=== PATIENT | female | born 1980 | race Caucasian/White ===

== ENCOUNTER 2017-12-14 12:16 | Inpatient (IN) ==
[2017-12-14 13:38] LABS: Basophils % 0.1 % (0.1-2.0); Eosinophils % 0.7 % (0.1-12.0); Hematocrit 39.7 % (37.0-47.0); Hemoglobin 12.4 g/dL (12.2-16.2); Lymphocytes # 1.4 K/mm3 (0.7-4.5); Lymphocytes % 22.4 K/mm3 (10-50); Mean Corpuscular HGB Conc 31.1 g/dL (31.8-35.4); Mean Corpuscular Hemoglobin 24.8 pg (27.0-31.2); Mean Corpuscular Volume 79.5 fl (81-99); Mean Platelet Volume 8.7 fl (7.4-10.4); Monocytes # 0.3 K/mm3 (0.1-1.0); Monocytes % 5.4 % (1.7-9.3); Neutrophils # 4.5 K/mm3 (1.8-7.8); Neutrophils % 71.4 % (37.0-80.0); Platelet Count 185 K/mm3 (142-424); Red Cell Distribution Width 15.2 % (11.5-17.5); White Blood Count 6.3 K/mm3 (4.8-10.8)
--- NOTE | 2017-12-14 13:46 | Progress Note ---
Labor Note - Subjective: Date: 12/14/17 Time: 13:45 regular contraction - Objective: NST:: Reactive Contractions:: every 2-3 minutes Cervical Dilation:: 3-4 Effacement:: 75% Station: -1 Membranes: articially ruptured - Fetus: Monitoring?: Yes monitoring type:: External - Assessment: Labor progressing?: Yes Cephalopelvic disproportion?: No Patient Problems: All Active Problems (Acute) - Plan: Anesthesia for epidural?: Yes Continue to labor down?: Yes Plan for ?: No Continue to monitor?: Yes Start pushing?: No
--- NOTE | 2017-12-14 13:48 | History & Physical Report ---
OB - H&P: HPI Antepartum - History of Present Illness Chief complaint: Contract History of present illness: She is a 37-year-old 11 para 10 she was seen in my office today and was having a few tractions. I stripped her membranes she began feeling a lot of pressure. She was 2-3 in my office and here in labor and delivery she is now 4 cm. - History of Present Criteria for establishing EDC:: LMP confirmed by 2nd trimester US care: limited care Ultrasounds: normal mid trimester US Obstetrical complications: none Medical complications: none - Labs GBS status: unknown [facility] History I have reviewed the patient's past medical history: Yes Other Surgeries: Yes: No Previous Surgery. No: Amputation: No Fractures: No - *Social History Smoking Status: Never smoker Alcohol Intake: never Substance Use Type: denies use *Family Hx:: No significant family history Para: 10 Meds Home Medications Medication Instructions Recorded Confirmed Type multivitamin capsule 1 cap PO QAM 07/03/17 History Allergies Allergy/AdvReac Type Severity Reaction Status Date / Time No Known Allergies Allergy Verified 12/14/17 10:54 OB - H&P: Exam - Physical Exam Vital signs: Temp Pulse Resp BP Pulse Ox 98.0 F 64 18 121/73 99 12/14/17 12:47 12/14/17 12:47 12/14/17 12:47 12/14/17 12:47 12/14/17 12:47 - Constitutional no acute distress - Routine HEENT Exam Head: Present: normocephalic - Routine Neck Exam Present: supple - Routine Exam Patient deferred: external exam Comments: Her cervix 3-4 cm. I ruptured her membranes and there was clear fluid. OB - Results - Labs Labs: Short CBC 12/14/17 Range/Units 13:25 WBC 6.3 (4.8-10.8) K/mm3 Hgb 12.4 (12.2-16.2) g/dL Hct 39.7 (37.0-47.0) % Plt Count 185 (142-424) K/mm3 OB - A/P Antepartum (1) Normal delivery Current visit: Yes Status: Acute (2) Grand multiparity in labor and delivery Current visit: Yes Status: Acute - Additional Plan Planning to breastfeed?: Yes Plan: expectant management Additional Information:: She is having regular contractions. We have ruptured membranes. She would like an epidural. We will expect a vaginal delivery.
--- NOTE | 2017-12-14 14:50 | Progress Note ---
[facility] Anesthesia Checklist - Patient Identification Patient Identification: Arm Band, Verbal (Name & ) - Structural Data Admitted From: Home Planned Operative Procedure/s: Labor Epidural Consent for Planned Operative Procedure(s) Verified: Yes Verified Documents: Surgical Consent, History and Physical - Additional verifications Patient : Yes Anesthesia Reactions: No - Airway Assessment C-Spine Mobility Assessed: Yes TMJ Mobility Assessed: Yes Dentition: Good Dentition - Neurological Assessment Level of Consciousness: Awake Hx Seizures: No Numbness or tingling in extremities: No - Anesthesia Plan Anesthesia Risk discussed: Yes Anesthesia Plan: Verified ASA Class: II Anesthesia Type: Epidural [facility] Anesthesia HX I have reviewed the patient's past medical history: Yes Other Medical History: Reports: Other Other Surgeries: Yes: No Previous Surgery. No: Amputation: No Fractures: No *Family Hx:: No significant family history
--- NOTE | 2017-12-14 15:54 | Progress Note ---
Labor Note - Subjective: Date: 12/14/17 Time: 15:53 regular contraction - Objective: NST:: Reactive Contractions:: every 2-3 minutes Cervical Dilation:: 4-5 Effacement:: 75% Station: -1 Membranes: articially ruptured - Fetus: Monitoring?: Yes monitoring type:: External - Assessment: Labor progressing?: Yes Cephalopelvic disproportion?: No Patient Problems: All Active Problems Grand multiparity (Acute) Normal delivery (Acute) Grand multiparity in labor and delivery (Acute) (Acute) - Plan: Anesthesia for epidural?: Yes Continue to labor down?: Yes Plan for ?: No Continue to monitor?: Yes Start pushing?: No
--- NOTE | 2017-12-14 18:13 | Progress Note ---
Labor Note - Subjective: Date: 12/14/17 Time: 18:12 regular contraction - Objective: NST:: Reactive Contractions:: every 2-3 minutes Cervical Dilation:: 5-6 Effacement:: 90% Station: -2 Membranes: articially ruptured - Fetus: Monitoring?: Yes monitoring type:: External - Assessment: Labor progressing?: Yes Cephalopelvic disproportion?: No Patient Problems: All Active Problems Grand multiparity (Acute) Normal delivery (Acute) Grand multiparity in labor and delivery (Acute) (Acute) - Plan: Anesthesia for epidural?: Yes Continue to labor down?: Yes Plan for ?: No Continue to monitor?: Yes Start pushing?: No
--- NOTE | 2017-12-14 20:09 | Progress Note ---
Labor Note - Subjective: Date: 12/14/17 Time: 20:07 regular contraction - Objective: NST:: Reactive Contractions:: every 2-3 minutes Cervical Dilation:: 8 Effacement:: 100% Station: 0 Membranes: articially ruptured - Fetus: Monitoring?: Yes monitoring type:: External - Assessment: Labor progressing?: Yes Cephalopelvic disproportion?: No Patient Problems: All Active Problems Grand multiparity (Acute) Normal delivery (Acute) Grand multiparity in labor and delivery (Acute) (Acute) - Plan: Anesthesia for epidural?: Yes Continue to labor down?: Yes Plan for ?: No Continue to monitor?: Yes Start pushing?: No
--- NOTE | 2017-12-14 22:03 | Progress Note ---
Delivery date: 12/14/17 Procedure: Spontaneous vaginal delivery of vigorous liveborn male over intact perineum. No nuchal cord or shoulder dystocia noted during delivery. delivered in controlled fashion and without complication; infant placed directly on maternal abdomen and straight to [id number] after umbilical cord cut. Apgars 9 & 10 at 1 & 5 minutes. Placenta spontaneously delivered and noted to be intact. No perineal, vaginal or cervical lacerations; left periurethral abrasion noted but was hemostatic with no active bleeding and no repair required. All sponge/instrument counts correct. EBL: 300cc. Complications: none. Disposition: mom/baby stable to recovery. Induction method: none Delivery monitor: external FHT Route of delivery: Laceration description: Periurethral - 1st Degree (left--no repair) Estimated blood loss (mL): 300 Anesthesia type: Epidural Disposition: floor Complications: None
[2017-12-15 07:17] LABS: Basophils % 0.1 % (0.1-2.0); Eosinophils % 0.5 % (0.1-12.0); Hematocrit 35.4 % (37.0-47.0); Hemoglobin 11.3 g/dL (12.2-16.2); Lymphocytes # 1.3 K/mm3 (0.7-4.5); Lymphocytes % 17.9 K/mm3 (10-50); Mean Corpuscular HGB Conc 31.9 g/dL (31.8-35.4); Mean Corpuscular Hemoglobin 25.5 pg (27.0-31.2); Mean Corpuscular Volume 79.8 fl (81-99); Mean Platelet Volume 9.5 fl (7.4-10.4); Monocytes # 0.5 K/mm3 (0.1-1.0); Neutrophils # 5.3 K/mm3 (1.8-7.8); Neutrophils % 74.6 % (37.0-80.0); Platelet Count 155 K/mm3 (142-424); Red Blood Count 4.43 M/mm3 (4.20-5.40); Red Cell Distribution Width 15.2 % (11.5-17.5); White Blood Count 7.1 K/mm3 (4.8-10.8)
--- NOTE | 2017-12-15 08:12 | Discharge Summary ---
General - General Admission date:: 12/14/17 Discharge date: 12/15/17 HPI HPI: She is a 37-year-old 11 now para 11 who was 40 and 2 weeks gestational age. She was seen in my office and I stripped her membranes. She began having lots of pressure right away and contractions. As result of that she was admitted. Hospital Course Hospital Course: She had her membranes ruptured and under labor progressed to full dilation. She delivered spontaneously a liveborn male child at 9:29 PM in the evening of December 14, 2017. The baby was a liveborn male child weighing 8 lbs. 1 oz. with Apgars of 9 at 1 minute and 9 at 5 minutes. She has done well and has remained afebrile throughout her hospitalization. She is eating and drinking and ambulating. She is breast- feeding. She has a positive blood, she her rubella status is unknown and her group B streptococcus status was unknown. She had no risk factors and did not receive IV antibiotics while in labor. She is discharged home to follow-up with me in approximately 2 weeks time. She will continue with her vitamins. Objective Vital signs: Temp Pulse Resp BP Pulse Ox 98.0 F 64 18 121/73 99 12/14/17 12:47 12/14/17 12:47 12/14/17 12:47 12/14/17 12:47 12/14/17 12:47 no acute distress Results Labs on day of discharge: Labs from last 24 hours 12/15/17 12/14/17 12/14/17 07:05 13:25 13:25 WBC 7.1 6.3 RBC 4.43 5.00 Hgb 11.3 L 12.4 Hct 35.4 L 39.7 MCV 79.8 L 79.5 L MCH 25.5 L 24.8 L MCHC 31.9 31.1 L RDW 15.2 15.2 Plt Count 155 185 MPV 9.5 8.7 Neut % (Auto) 74.6 71.4 Lymph % (Auto) 17.9 22.4 [place] % (Auto) 7.0 5.4 Eos % (Auto) 0.5 0.7 Baso % (Auto) 0.1 0.1 Neut # (Auto) 5.3 4.5 Lymph # (Auto) 1.3 1.4 [place] # (Auto) 0.5 0.3 Eos # (Auto) 0.0 0.0 Baso # (Auto) 0.0 0.0 Blood Type A Positive Antibody Screen Negative DS: Diagnosis - Discharge Diagnosis (1) Normal delivery Status: Acute (2) Grand multiparity in labor and delivery Status: Acute Discharge Plan - Patient Discharge Instructions ACTIVITY: No heavy lifting DIET: continue same diet - Follow up Plan Disposition: Home, Self-Assisted Medications: Home Medications Medication Instructions Recorded Confirmed Type multivitamin capsule 1 cap PO QAM 07/03/17 12/14/17 History Prescriptions/Medication Reconciliation: Continue multivitamin capsule 1 cap PO QAM
== END 2017-12-15 11:10 | disposition home or self-care (01) ==
LOC: OBOUT 12:16 → OB 12:24
PROVIDERS: ADMIT Nurse Practitioner Obstetrics & Gynecology; ATTEND Nurse Practitioner Obstetrics & Gynecology

== ENCOUNTER → 2019-05-30 17:16 | Outpatient (CLI) | payer SELFPAY | PROVIDERS: Visit Provider Nurse Practitioner Obstetrics & Gynecology | DX: Z34.90 Encounter for supervision of normal pregnancy, unspecified, unspecified trimester (principal) | CPT/HCPCS: 86403 ==

== ENCOUNTER 2019-06-03 05:30 | Inpatient (IN) ==
[2019-06-03 06:11] LABS: Microscopic, Urine URINE MICROSCOPIC (MICROSCOPIC)
[2019-06-03 06:25] LABS: Appearance,Urine CLEAR (Clear); Bilirubin,Urine Negative (Negative); Blood, Urine Negative (Negative); Color,Urine YELLOW (Yellow); Glucose,Urine (UA) Negative (Negative); Ketones,Urine Negative (Negative); Leukocyte Esterase,Urine Negative (Negative); PH,Urine 6.5 (5.0-8.5); Protein,Urine Negative (Negative); Specific Gravity, Urine <= 1.005 (1.005-1.030); Urobilinogen,Urine 0.2 EU/dl (0.2)
[2019-06-03 06:33] LABS: Amphetamine/Metha Screen,Urine Negative ng/mL (<1000); Barbiturates Screen,Urine Negative ng/mL (<200); Benzodiazepines Screen,Urine Negative ng/mL (<200); Cannabinoid Screen,Urine Negative ng/mL (<50); Cocaine Screen,Urine Negative ng/mL (<300); Methadone Screen,Urine Negative ng/mL (<300); Opiate Screen,Urine Negative ng/mL (<300); Phencyclidine Screen,Urine Negative ng/mL (<25)
[2019-06-03 07:03] LABS: Red Cell Distribution Width 14.9 % (11.5-17.5)
[2019-06-03 07:07] LABS: WBC,Urine Occasional #/hpf (0-3)
[2019-06-03 07:16] LABS: Basophils % 0.1 % (0.1-2.0); Eosinophils % 0.6 % (0.1-12.0); Lymphocytes # 1.7 K/mm3 (0.7-4.5); Lymphocytes % 30.3 % (10-50); Mean Corpuscular HGB Conc 33.2 g/dL (31.8-35.4); Mean Corpuscular Volume 80.4 fl (81-99); Mean Platelet Volume 8.4 fl (7.4-10.4); Monocytes # 0.4 K/mm3 (0.1-1.0); Monocytes % 6.6 % (1.7-9.3); Neutrophils # 3.4 K/mm3 (1.8-7.8); Neutrophils % 62.5 % (37.0-80.0); Platelet Count 191 K/mm3 (142-424); Red Blood Count 4.56 M/mm3 (4.20-5.40); White Blood Count 5.5 K/mm3 (4.8-10.8)
[2019-06-03 07:18] LABS: Hemoglobin 12.2 g/dL (12.2-16.2)
[2019-06-03 07:19] LABS: Hematocrit 36.6 % (37.0-47.0)
--- NOTE | 2019-06-03 07:43 | Progress Note ---
Labor Note - Subjective: Date: 06/03/19 Time: 07:42 regular contraction - Objective: NST:: Reactive Contractions:: every 2-3 minutes Cervical Dilation:: 2-3 Effacement:: 50% Membranes: artificially ruptured - Fetus: Monitoring?: Yes monitoring type:: External - Assessment: Labor progressing?: Yes Cephalopelvic disproportion?: No Patient Problems: All Active Problems (Acute) - Plan: Anesthesia for epidural?: Yes Continue to labor down?: Yes Plan for ?: No Continue to monitor?: Yes Start pushing?: No Comment:: She is a 38-year-old 12 para 11 who is 39+ weeks gestational age. She wanted an epidural so we have admitted her for induction of labor at term.
--- NOTE | 2019-06-03 07:45 | History & Physical Report ---
OB - H&P: HPI Antepartum - History of Present Illness Chief complaint: Term , grand multiparity, advanced maternal age History of present illness: She is a 38-year-old Muslim lady who is a 12 para 11 who is 39+ weeks gestational age. She wants an epidural and is here for induction of labor at term. - History of Present Criteria for establishing EDC:: LMP confirmed by 2nd trimester US care: good care Ultrasounds: normal mid trimester US Obstetrical complications: none, other Medical complications: none [facility] History I have reviewed the patient's past medical history: Yes Medical History: Denies:: Seizures *Have you ever received a pneumonia vaccine?: No *Have you received a flu vaccine this season?: No Other Medical History: Reports: Other Other Surgeries: Yes: No Previous Surgery. No: Amputation: No Fractures: No - *Social History Smoking Status: Never smoker Alcohol Intake: never Substance Use Type: denies use *Occupational Status:: unemployed *Travel in the last 8 weeks: Inside the [facility] Family Hx:: No significant family history Para: 11 Review of Systems - Review of Systems Review of systems:: pertinent systems reviewed and negative unless documented below Meds Home Medications Medication Instructions Recorded Confirmed Type No Known Home Medications 06/03/19 06/03/19 History Allergies Allergy/AdvReac Type Severity Reaction Status Date / Time No Known Allergies Allergy Verified 05/30/19 16:30 OB - H&P: Exam - Physical Exam Vital signs: Temp Pulse Resp BP Pulse Ox 98.0 F 72 16 115/82 97 06/03/19 05:58 06/03/19 05:58 06/03/19 05:58 06/03/19 05:58 06/03/19 05:58 - Constitutional no acute distress - Routine HEENT Exam Head: Present: normocephalic Eye: Present: EOMI, PERRL ENT: Present: mucous membranes moist - Routine Neck Exam Present: supple, full ROM - Routine Respiratory Exam Absent: accessory muscle use (good air entry bilaterally), respiratory distress, wheezes, crackles - Routine Cardiovascular Exam Present: RRR. Absent: murmur - Routine Abdominal Exam Present: soft, normoactive bowel sounds. Absent: tenderness, distended, guarding - Routine Rectal Exam Patient deferred: visual exam, digital exam - Routine Exam Patient deferred: external exam, groin exam, perineal exam - Routine Extremities Exam Present: full ROM. Absent: cyanosis, edema - Routine Skin Exam Present: intact. Absent: cyanosis - Routine Neurological Exam Present: alert, oriented X3 - Routine Psychiatric Exam Present: normal affect OB - Results - Labs Labs: Short CBC 06/03/19 Range/Units 06:05 WBC 5.5 (4.8-10.8) K/mm3 Hgb 12.2 (12.2-16.2) g/dL Hct 36.6 L (37.0-47.0) % Plt Count 191 (142-424) K/mm3 Urine 06/03/19 Range/Units 05:50 Urine Color Yellow (Yellow) Urine Appearance Clear (Clear) Urine pH 6.5 (5.0-8.5) Ur Specific [place] <= 1.005 (1.005-1.030) Urine Protein Negative (Negative) Urine Glucose (UA) Negative (Negative) OB - A/P Antepartum (1) Normal delivery at term Current visit: Yes Status: Acute (2) Advanced maternal age in multigravida Current visit: Yes Status: Acute (3) Grand multiparity in labor and delivery, delivered Current visit: Yes Status: Acute - Additional Plan Planning to breastfeed?: Yes Plan: induction Additional Information:: She is here for induction of labor at term because she would like an epidural.
[2019-06-03 10:58] VITALS: BP 128/80
--- NOTE | 2019-06-03 11:10 | Progress Note ---
Labor Note - Subjective: Date: 06/03/19 Time: 11:09 regular contraction - Objective: NST:: Reactive Contractions:: every 2-3 minutes Cervical Dilation:: 5-6 Effacement:: 90% Station: -1 Membranes: artificially ruptured - Fetus: Monitoring?: Yes monitoring type:: External - Assessment: Labor progressing?: Yes Cephalopelvic disproportion?: No Patient Problems: All Active Problems Normal delivery at term (Acute) Advanced maternal age in multigravida (Acute) Grand multiparity in labor and delivery, delivered (Acute) (Acute) - Plan: Anesthesia for epidural?: Yes Continue to labor down?: Yes Plan for ?: No Continue to monitor?: Yes Start pushing?: No
--- NOTE | 2019-06-03 12:53 | Progress Note ---
Labor Note - Subjective: Date: 06/03/19 Time: 12:52 regular contraction - Objective: NST:: Reactive Contractions:: every 2-3 minutes Cervical Dilation:: 8 Effacement:: 90% Station: 0 Membranes: artificially ruptured - Fetus: Monitoring?: Yes monitoring type:: External - Assessment: Labor progressing?: Yes Cephalopelvic disproportion?: No Patient Problems: All Active Problems Normal delivery at term (Acute) Advanced maternal age in multigravida (Acute) Grand multiparity in labor and delivery, delivered (Acute) (Acute) - Plan: Anesthesia for epidural?: Yes Continue to labor down?: Yes Plan for ?: No Continue to monitor?: Yes Start pushing?: No Comment:: She continues to do well. The baby's head just needs come down a little bit more. She is 8 cm.
--- NOTE | 2019-06-03 13:26 | Procedure Note ---
- Delivery Note Delivery Date:: 06/03/19 Delivery Time:: 13:13 Anesthesia Type: Epidural Was labor medically induced?: Yes Induction method: per pitocin protocol Gestational age (weeks): 39 delivered prior to 39 weeks?: No Gender: Male at 1 minute: 7 at 5 minutes: 9 Delivery Procedure:: She is a 38-year-old 12 para 11 who was 39 weeks gestational age. Since she was a grand multipara para we elected to induce her labor at term. She also wanted an epidural. She was started on IV oxytocin had her membranes ruptured. She progressed to full dilation and delivered spontaneously under labor epidural a liveborn male child at 1:13 PM. Baby had Apgars of 7 at 1 minute and 9 at 5 minutes. On deliver the head there was noted that there was a cord around the shoulder but the rest the infant's body delivered atraumatically. This was then reduced. We allowed the cord to continue to pulsate for approximately 1 minute since the baby was vigorous. We then doubly clamped and cut the cord. The baby was then placed on the mother's abdomen for further care. The nurses assigned Apgars of 7 at 1 minute and 9 at 5 minutes. She received IV oxytocin and using gentle traction on the cord and countertraction on the fundus I was able to easily deliver the placenta intact. He had a normal three-vessel cord. There were no perineal or vaginal lacerations. She has a Rh+ blood, she is rubella immune and was group B streptococcus negative. Estimated blood loss was less than 400 cc. Placental Delivery Description: Spontaneous
--- NOTE | 2019-06-03 19:25 | Discharge Summary ---
General - General Admission date:: 06/03/19 Discharge date: 06/03/19 HPI HPI: She is a 38-year-old 12 now para 12 lady who was 39 weeks gestational age. She wanted an epidural and as result of that she was brought in for induction of labor at term. Hospital Course Hospital Course: She was started on IV oxytocin had her membranes ruptured. Under labor epidural she progressed to full dilation and delivered spontaneously a liveborn male child at 1:13 PM in the afternoon of June 03, 2019. The baby had Apgars of 7 at 1 minute and 9 at 5 minutes. She has done well and has remained afebrile with her hospitalization. She is eating and drinking and ambulating. She is breast-feeding. She would like to go home this evening. We will give her 1 dose of Cytotec prior to discharge and another to take in the night. She will continue with her vitamins. She was given the usual instructions with respect to limiting her activity. Her condition on discharge is stable and improved. Her lochia is normal and minimal. Objective Vital signs: Temp Pulse Resp BP Pulse Ox 98.0 F 67 18 128/80 96 06/03/19 08:00 06/03/19 08:00 06/03/19 08:00 06/03/19 08:00 06/03/19 08:00 no acute distress Results Labs on day of discharge: Labs from last 24 hours 06/03/19 06/03/19 06/03/19 06:05 06:05 05:50 WBC 5.5 RBC 4.56 Hgb 12.2 Hct 36.6 L MCV 80.4 L MCH 26.7 L MCHC 33.2 RDW 14.9 Plt Count 191 MPV 8.4 Neut % (Auto) 62.5 Lymph % (Auto) 30.3 [place] % (Auto) 6.6 Eos % (Auto) 0.6 Baso % (Auto) 0.1 Neut # (Auto) 3.4 Lymph # (Auto) 1.7 [place] # (Auto) 0.4 Eos # (Auto) 0.0 Baso # (Auto) 0.0 Urine Color Urine Appearance Urine pH Ur Specific [place] Urine Protein Urine Glucose (UA) Urine Ketones Urine Blood Urine Nitrate Urine Bilirubin Urine Urobilinogen Ur Leukocyte Esterase Urine RBC Urine WBC Ur Squamous Epith Cells Urine Bacteria Urine Opiates Screen Negative Urine Methadone Screen Negative Ur Barbituates Screen Negative Ur Phencyclidine Scrn Negative Ur Amphetamines Screen Negative U Benzodiazepines Scrn Negative Urine Cocaine Screen Negative U Marijuana (THC) Screen Negative Blood Type A Positive Antibody Screen Negative 06/03/19 05:50 WBC RBC Hgb Hct MCV MCH MCHC RDW Plt Count MPV Neut % (Auto) Lymph % (Auto) [place] % (Auto) Eos % (Auto) Baso % (Auto) Neut # (Auto) Lymph # (Auto) [place] # (Auto) Eos # (Auto) Baso # (Auto) Urine Color Yellow Urine Appearance Clear Urine pH 6.5 Ur Specific [place] <= 1.005 Urine Protein Negative Urine Glucose (UA) Negative Urine Ketones Negative Urine Blood Negative Urine Nitrate Negative Urine Bilirubin Negative Urine Urobilinogen 0.2 Ur Leukocyte Esterase Negative Urine RBC None Urine WBC Occasional Ur Squamous Epith Cells 5-10 Urine Bacteria None Urine Opiates Screen Urine Methadone Screen Ur Barbituates Screen Ur Phencyclidine Scrn Ur Amphetamines Screen U Benzodiazepines Scrn Urine Cocaine Screen U Marijuana (THC) Screen Blood Type Antibody Screen DS: Diagnosis - Discharge Diagnosis (1) Normal delivery at term Status: Acute (2) Advanced maternal age in multigravida Status: Acute (3) Grand multiparity in labor and delivery, delivered Status: Acute Discharge Plan - Patient Discharge Instructions ACTIVITY: No heavy lifting DIET: continue same diet Additional Instructions: NOTHING IN THE VAGINA, NO STRENUOUS ACTIVITY AND NO HEAVY LIFTING Patient Instructions: Depression, Hemorrhage, [facility] Post Discharge Instructions - Follow up Plan Follow up with: Masood Lal MD [Staff Physician] - Disposition: Home, Self-Fdc Medications: Home Medications Medication Instructions Recorded Confirmed Type No Known Home Medications 06/03/19 06/03/19 History Prescriptions/Medication Reconciliation: Continued No Known Home Medications - Problem Reconciliation Problems Reviewed?: Yes
== END 2019-06-03 20:05 | disposition home or self-care (01) | DRG 807 ==
LOC: OB 05:30
PROVIDERS: ADMIT Nurse Practitioner Obstetrics & Gynecology; ATTEND Nurse Practitioner Obstetrics & Gynecology
CPT/HCPCS: J0595

== ENCOUNTER → 2021-05-01 15:58 | Outpatient (CLI) | payer SELFPAY | PROVIDERS: Visit Provider Nurse Practitioner Obstetrics & Gynecology | DX: Z34.90 Encounter for supervision of normal pregnancy, unspecified, unspecified trimester (principal) | CPT/HCPCS: 86403 ==

== ENCOUNTER 2021-05-07 05:06 | Inpatient (IN) | payer SELFPAY ==
[2021-05-07 05:10] VITALS: BMI 32.2
[2021-05-07 06:03] LABS: Coronavirus 19, PCR Not Detected (NotDetected); Influenza A, PCR Not Detected (NotDetected); Influenza B, PCR Not Detected (NotDetected); Microscopic, Urine URINE MICROSCOPIC (MICROSCOPIC)
[2021-05-07 06:12] LABS: Basophils % 0.6 % (0.1-2.0); Eosinophils % 0.2 % (0.1-12.0); Hematocrit 38.8 % (37.0-47.0); Hemoglobin 13.1 g/dL (12.2-16.2); Lymphocytes # 1.2 K/mm3 (0.7-4.5); Lymphocytes % 15.8 % (10-50); Mean Corpuscular HGB Conc 33.8 g/dL (31.8-35.4); Mean Corpuscular Hemoglobin 26.6 pg (27.0-31.2); Mean Corpuscular Volume 78.6 fl (81-99); Mean Platelet Volume 8.6 fl (7.4-10.4); Monocytes # 0.4 K/mm3 (0.1-1.0); Monocytes % 4.9 % (1.7-9.3); Neutrophils # 6.2 K/mm3 (1.8-7.8); Neutrophils % 78.6 % (37.0-80.0); Platelet Count 195 K/mm3 (142-424); Red Blood Count 4.93 M/mm3 (4.20-5.40); Red Cell Distribution Width 15.4 % (11.5-17.5); White Blood Count 7.9 K/mm3 (4.8-10.8)
[2021-05-07 06:21] LABS: Appearance,Urine CLEAR (Clear); Bilirubin,Urine Negative (Negative); Blood, Urine Negative (Negative); Color,Urine YELLOW (Yellow); Glucose,Urine (UA) Negative (Negative); Ketones,Urine Negative (Negative); Leukocyte Esterase,Urine TRACE (Negative); Nitrate,Urine Negative (Negative); Protein,Urine Negative (Negative); Specific Gravity, Urine <= 1.005 (1.005-1.030); Urobilinogen,Urine 0.2 EU/dl (0.2)
[2021-05-07 06:29] VITALS: BP 125/74; PULSE 81; RESP 18; TEMP 36.7; O2SAT 99; BMI 32.2
[2021-05-07 06:34] LABS: Amorphous Sediment,Urine 1+ /lpf
[2021-05-07 07:03] LABS: Barbiturates Screen,Urine Negative ng/ml (<200); Benzodiazepines Screen,Urine Negative ng/ml (<200)
[2021-05-07 07:04] LABS: Amphetamine/Metha Screen,Urine Negative ng/ml (<1000); Methadone Screen,Urine Negative ng/ml (<300)
[2021-05-07 07:05] LABS: Cannabinoid Screen,Urine Negative ng/ml (<50)
[2021-05-07 07:06] LABS: Cocaine Screen,Urine Negative ng/ml (<300)
[2021-05-07 07:09] LABS: Phencyclidine Screen,Urine Negative ng/ml (<25)
[2021-05-07 07:10] LABS: Opiate Screen,Urine Negative ng/ml (<300)
--- NOTE | 2021-05-07 07:33 | P.PN_ITS ---
[facility] Anesthesia Checklist - Structural Data Admitted From: Inpatient Planned Operative Procedure/s: labor epidural Consent for Planned Operative Procedure(s) Verified: Yes - Additional verifications Anesthesia Reactions: No - Airway Assessment C-Spine Mobility Assessed: Yes TMJ Mobility Assessed: Yes Dentition: Good Dentition - Neurological Assessment Level of Consciousness: Awake, Alert, Appropriate - Anesthesia Plan Anesthesia Risk discussed: Yes Anesthesia Plan: Verified ASA Class: II Anesthesia Type: Epidural [facility] History I have reviewed the patient's past medical history: Yes Medical History: Denies:: Seizures *Have you ever received a pneumonia vaccine?: No *Have you received a flu vaccine this season?: No Other Medical History: Reports: Other Anesthesia experience/problems:: none Other Surgeries: Yes: No Previous Surgery. No: Amputation: No Fractures: No - *Social History Smoking Status: Never smoker Alcohol Intake: never Substance Use Type: denies use *Occupational Status:: unemployed *Travel in the last 8 weeks: None Family Hx:: No significant family history Para: 12
--- NOTE | 2021-05-07 09:27 | [facility].LABNOT ---
Labor Note - Subjective: Date: 05/07/21 Time: 09:27 regular contraction - Objective: NST:: Reactive Contractions:: every 2-3 minutes Cervical Dilation:: 3-4 Effacement:: 75% Station: -1 Membranes: artificially ruptured - Fetus: Monitoring?: Yes monitoring type:: Internal and External Comment:: I inserted an IUPC - Assessment: Labor progressing?: Yes Cephalopelvic disproportion?: No Patient Problems: All Active Problems Vaginal bleeding in (Acute) Normal delivery at term (Acute) Advanced maternal age in multigravida (Acute) Grand multiparity in labor and delivery, delivered (Acute) - Plan: Anesthesia for epidural?: Yes Continue to labor down?: Yes Plan for ?: No Continue to monitor?: Yes Start pushing?: No
--- NOTE | 2021-05-07 09:28 | HMH.OBAPHP ---
OB - H&P: HPI Antepartum - History of Present Illness Chief complaint: Grand multipara, term , History of present illness: She is a 40-year-old 13 para 12 who is 39 weeks gestational age. She has had some traumatic deliveries and requested epidural for her delivery. She had group B strep done and this was negative. She is admitted for delivery. - History of Present Criteria for establishing EDC:: based on LMP only care: limited care Ultrasounds: normal mid trimester US Obstetrical complications: none Medical complications: none - Labs Blood type: A (+) positive Rubella: unknown RPR/VDRL: unknown GBS status: negative HBsAG: unknown [facility] History I have reviewed the patient's past medical history: Yes Medical History: Denies:: Seizures *Have you ever received a pneumonia vaccine?: No *Have you received a flu vaccine this season?: No Other Medical History: Reports: Other Anesthesia experience/problems:: none Other Surgeries: Yes: No Previous Surgery. No: Amputation: No Fractures: No - *Social History Smoking Status: Never smoker Alcohol Intake: never Substance Use Type: denies use *Occupational Status:: unemployed *Travel in the last 8 weeks: None Family Hx:: No significant family history Para: 12 Review of Systems - Review of Systems Review of systems:: pertinent systems reviewed and negative unless documented below Meds Home Medications Medication Instructions Recorded Confirmed Type vitamins no.119-iron 1 tab PO DAILY 06/04/20 05/07/21 History fumarate 29 mg-folic acid 1 mg tablet Allergies Allergy/AdvReac Type Severity Reaction Status Date / Time No Known Allergies Allergy Verified 04/05/21 09:57 OB - H&P: Exam - Physical Exam Vital signs: Temp Pulse Resp BP Pulse Ox 98.1 F 81 18 125/74 99 05/07/21 06:29 05/07/21 06:29 05/07/21 06:29 05/07/21 06:29 05/07/21 06:29 - Constitutional no acute distress - Routine HEENT Exam Head: Present: normocephalic Eye: Present: EOMI, PERRL ENT: Present: mucous membranes moist - Routine Neck Exam Present: supple, full ROM - Routine Respiratory Exam Absent: accessory muscle use (good air entry bilaterally), respiratory distress, wheezes, crackles - Routine Cardiovascular Exam Present: RRR. Absent: murmur - Routine Abdominal Exam Present: soft, normoactive bowel sounds. Absent: tenderness, distended, guarding - Routine Rectal Exam Patient deferred: visual exam, digital exam - Routine Exam Patient deferred: external exam, groin exam, perineal exam - Routine Extremities Exam Present: full ROM. Absent: cyanosis, edema - Routine Skin Exam Present: intact. Absent: cyanosis - Routine Neurological Exam Present: alert, oriented X3 - Routine Psychiatric Exam Present: normal affect OB - Results - Labs Labs: Short CBC 05/07/21 Range/Units 05:53 WBC 7.9 (4.8-10.8) K/mm3 Hgb 13.1 (12.2-16.2) g/dL Hct 38.8 (37.0-47.0) % Plt Count 195 (142-424) K/mm3 Urine 05/07/21 Range/Units 05:53 Urine Color Yellow (Yellow) Urine Appearance Clear (Clear) Urine pH 6.0 (5.0-8.5) Ur Specific [place] <= 1.005 (1.005-1.030) Urine Protein Negative (Negative) Urine Glucose (UA) Negative (Negative) OB - A/P Antepartum (1) Normal delivery at term Status: Acute (2) Grand multiparity in labor and delivery, delivered Status: Acute - Additional Plan Planning to breastfeed?: Yes Plan: induction Additional Information:: She is 39 weeks gestational age. I ruptured her membranes and there is clear fluid. I inserted an IUPC. Nonstress test is reactive and contractions are every 3 minutes. We expect a vaginal delivery.
--- NOTE | 2021-05-07 11:31 | HMH.LABNOT ---
Labor Note - Subjective: Date: 05/07/21 Time: 11:31 regular contraction - Objective: NST:: Reactive Contractions:: every 2-3 minutes Cervical Dilation:: 5-6 Effacement:: 75% Station: 0 Membranes: artificially ruptured - Fetus: Monitoring?: Yes monitoring type:: Internal and External - Assessment: Labor progressing?: Yes Cephalopelvic disproportion?: No Patient Problems: All Active Problems Vaginal bleeding in (Acute) Normal delivery at term (Acute) Advanced maternal age in multigravida (Acute) Grand multiparity in labor and delivery, delivered (Acute) - Plan: Anesthesia for epidural?: Yes Continue to labor down?: Yes Plan for ?: No Continue to monitor?: Yes Start pushing?: No
--- NOTE | 2021-05-07 14:01 | HMH.LABNOT ---
Labor Note - Subjective: Date: 05/07/21 Time: 14:01 regular contraction - Objective: NST:: Reactive Cervical Dilation:: 9-10 Effacement:: 100% Station: 0 Membranes: artificially ruptured - Fetus: Monitoring?: Yes monitoring type:: Internal and External - Assessment: Labor progressing?: Yes Cephalopelvic disproportion?: No Patient Problems: All Active Problems Vaginal bleeding in (Acute) Normal delivery at term (Acute) Advanced maternal age in multigravida (Acute) Grand multiparity in labor and delivery, delivered (Acute) - Plan: Anesthesia for epidural?: Yes Continue to labor down?: Yes Plan for ?: No Continue to monitor?: Yes Start pushing?: No Comment:: She still has an anterior lip and I had her push once but I could not push the lip out of the way so we will await the baby's head to come down a little further. She is doing well. She is comfortable. Nonstress test is reactive. Contractions are every 2 to 3 minutes.
--- NOTE | 2021-05-07 16:36 | HMH.DN ---
- Delivery Note Delivery Date:: 05/07/21 Delivery Time:: 14:14 Anesthesia Type: Epidural Was labor medically induced?: Yes Induction method: per pitocin protocol Gestational age (weeks): 39 delivered prior to 39 weeks?: No Gender: Female at 1 minute: 7 at 5 minutes: 9 Delivery Procedure:: She is a 40-year-old 13 para 12 lady who was 39 weeks gestational age. She had requested a epidural. She is delivered at home in the past. The last 3 babies she has had here in hospital and wanted an epidural to deliver. She was started on IV oxytocin had her membranes ruptured. Under labor epidural she progressed to full dilation and delivered spontaneously a liveborn female child at 2:14 PM in the afternoon of May 07, 2021. On deliver the head is noted that there was a nuchal cord and this was reduced. This was followed by deliver the anterior shoulder and the rest the infant's body atraumatically. The baby was vigorous. We allowed the cord to continue to pulsate for approximately 1 minute. The cord is then doubly clamped and cut and the infant was placed on the mother's abdomen for further care. The nurses assigned Apgars of 7 at 1 minute and 9 at 5 minutes. She received IV oxytocin using gentle traction on the cord and countertraction on the fundus I was able to easily deliver the placenta intact 2 minutes after delivery. There were no perineal or vaginal lacerations. Estimated blood loss was approximately 150 cc. Placental Delivery Description: Spontaneous
--- NOTE | 2021-05-07 16:40 | HMH.OBDCSM ---
General - General Admission date:: 05/07/21 Discharge date: 05/07/21 HPI - History of Present Illness History of present illness: She is a 40-year-old [place] lady who is 13 now para 13 lady who was 39 weeks gestational age. She was brought in for induction of labor at term. Hospital Course Hospital Course: She was started on IV oxytocin had her membranes ruptured. Under labor epidural progressed to full dilation and delivered spontaneously a liveborn female child at 2:14 PM in the afternoon of May 07, 2021. She has done well and has remained afebrile with her hospitalization. She is eating and drinking and ambulating. She is breast-feeding. She would like to go home on the day of her delivery. She has a positive blood, she was group B streptococcus positive. She is discharged home to follow-up with me in approximately 2 weeks time. She will continue with her vitamins and iron. She will continue with breast-feeding. She was given the usual instructions with respect to limiting her activity, and sexual activity. Rhogam Administration: Not Indicated Objective Vital signs: Temp Pulse Resp BP Pulse Ox 98.1 F 81 18 125/74 99 05/07/21 06:29 05/07/21 06:29 05/07/21 06:29 05/07/21 06:29 05/07/21 06:29 no acute distress - *Routine HEENT Exam Head: Present: normocephalic Eye: Present: EOMI, PERRL ENT: Present: mucous membranes moist Results Labs on day of discharge: Labs from last 24 hours 05/07/21 05/07/21 05/07/21 05:53 05:53 05:53 WBC RBC Hgb Hct MCV MCH MCHC RDW Plt Count MPV Neut % (Auto) Lymph % (Auto) [place] % (Auto) Eos % (Auto) Baso % (Auto) Neut # (Auto) Lymph # (Auto) [place] # (Auto) Eos # (Auto) Baso # (Auto) Urine Color Urine Appearance Urine pH Ur Specific [place] Urine Protein Urine Glucose (UA) Urine Ketones Urine Blood Urine Nitrate Urine Bilirubin Urine Urobilinogen Ur Leukocyte Esterase Urine RBC Urine WBC Ur Squamous Epith Cells Amorphous Sediment Urine Opiates Screen Negative Urine Methadone Screen Negative Ur Barbituates Screen Negative Ur Phencyclidine Scrn Negative Ur Amphetamines Screen Negative U Benzodiazepines Scrn Negative Urine Cocaine Screen Negative U Marijuana (THC) Screen Negative SARS-CoV-2 (PCR) Not detected Influenza A Untype (PCR) Not detected Influenza Type B (PCR) Not detected Blood Type A Positive Antibody Screen Negative 05/07/21 05/07/21 05:53 05:53 WBC 7.9 RBC 4.93 Hgb 13.1 Hct 38.8 MCV 78.6 L MCH 26.6 L MCHC 33.8 RDW 15.4 Plt Count 195 MPV 8.6 Neut % (Auto) 78.6 Lymph % (Auto) 15.8 [place] % (Auto) 4.9 Eos % (Auto) 0.2 Baso % (Auto) 0.6 Neut # (Auto) 6.2 Lymph # (Auto) 1.2 [place] # (Auto) 0.4 Eos # (Auto) 0.0 Baso # (Auto) 0.0 Urine Color Yellow Urine Appearance Clear Urine pH 6.0 Ur Specific [place] <= 1.005 Urine Protein Negative Urine Glucose (UA) Negative Urine Ketones Negative Urine Blood Negative Urine Nitrate Negative Urine Bilirubin Negative Urine Urobilinogen 0.2 Ur Leukocyte Esterase Trace Urine RBC 3-5 Urine WBC 3-5 Ur Squamous Epith Cells 5-10 Amorphous Sediment 1+ Urine Opiates Screen Urine Methadone Screen Ur Barbituates Screen Ur Phencyclidine Scrn Ur Amphetamines Screen U Benzodiazepines Scrn Urine Cocaine Screen U Marijuana (THC) Screen SARS-CoV-2 (PCR) Influenza A Untype (PCR) Influenza Type B (PCR) Blood Type Antibody Screen DS: Diagnosis - Discharge Diagnosis (1) Normal delivery at term Status: Acute (2) Grand multiparity in labor and delivery, delivered Status: Acute Discharge Plan - Patient Discharge Instructions ACTIVITY: No heavy lifting DIET: continue same diet Patie
[2021-05-07 19:44] VITALS: BP 112/55; PULSE 78; RESP 18; TEMP 36.8; O2SAT 96
== END 2021-05-07 20:20 | disposition home or self-care (01) | DRG 807 ==
PROVIDERS: Admitting Provider Nurse Practitioner Obstetrics & Gynecology; PCP Nurse Practitioner Family; Visit Provider Nurse Practitioner Obstetrics & Gynecology
DX: O69.81X0 Labor and delivery complicated by cord around neck, without compression, not applicable or unspecified (principal); Z37.0 Single live birth; Z3A.39 39 weeks gestation of pregnancy
CPT/HCPCS: 59409; 59025; 80305; 81001; 85025; 86850; C1758; C9803; U0003; U0005

== ENCOUNTER → 2023-02-12 23:32 | Outpatient (CLI) | payer SELFPAY | PROVIDERS: PCP Nurse Practitioner Family; Visit Provider Obstetrics & Gynecology | DX: Z34.92 Encounter for supervision of normal pregnancy, unspecified, second trimester (principal); Z3A.16 16 weeks gestation of pregnancy | CPT/HCPCS: 87086 ==